=== PATIENT | male | born 1960 | race Caucasian/White ===

== ENCOUNTER 2018-11-03 07:32 | Day surgery (SDC) ==
--- NOTE | 2018-11-02 10:16 | EKG Report ---
Test Performed on : 11/02/2018 10:10:58 AM Test Reason : pat Blood Pressure : / mmHG Vent. Rate : 080 BPM Atrial Rate : 080 BPM P-R Int : 182 ms QRS Dur : 096 ms QT Int : 382 ms P-R-T Axes : 056 047 084 degrees QTc Int : 440 ms Normal sinus rhythm. Normal ECG When compared with ECG of 02-NOV-2018 10:10, (Unconfirmed) T wave inversion no longer evident in Inferior leads Unconfirmed Result
[2018-11-02 10:35] LABS: HEMATOCRIT 39.4 % (42.0-52.0); HEMOGLOBIN 13.1 g/dL (14.0-18.0); MCH 31.2 PG (27-31); MCHC 33.2 g/dL (33-37); MCV 93.8 FL (81-99); RBC 4.2 XMIL (4.7-6.1); RDW 12.8 % (11.5-14.5); WBC 3.64 X1000 (4.8-10.8)
[2018-11-02 11:07] LABS: AGAP 12; BUN 28 mg/dL (8-22); CALCIUM 9.7 mg/dL (8.8-10.2); CHLORIDE 106 mmol/L (98-107); COSMO 295; CREATININE 1.1 mg/dL (0.7-1.2); ESTIMATED GFR > 60; GLUCOSE 105 mg/dL (70-104); POTASSIUM 4.5 mmol/L (3.5-5.1); SODIUM 145 mmol/L (136-145); TCO2 27 mmol/L (25-35)
[2018-11-03] MEDS ORDERED: DIPRIVAN 1% ONE (07:33)
[2018-11-03] MEDS ORDERED: XYLOCAINE-MPF 2% ONE (07:37)
[2018-11-03] MEDS ORDERED: SUFENTA ONE (07:37)
[2018-11-03] MEDS ORDERED: QUELICIN (DOSE) ONE (07:46)
[2018-11-03] MEDS ORDERED: KEFZOL 2 GM/D5W 2 GM/50 ML IVPB ONE (07:55)
[2018-11-03] MEDS ORDERED: REGLAN ONE (07:55)
[2018-11-03] MEDS ORDERED: PEPCID ONE (07:55)
[2018-11-03] MEDS ORDERED: VALIUM ONE (07:55)
[2018-11-03] MEDS ORDERED: LR 1,000 ML ONE ×2 (07:55→12:55)
[2018-11-03] MEDS ORDERED: NORCURON ONE (09:11)
[2018-11-03] MEDS ORDERED: B & O 15A SUPP ONE (09:54)
[2018-11-03] MEDS ORDERED: DECADRON ONE (09:58)
[2018-11-03] MEDS ORDERED: ZOFRAN ONE (09:58)
[2018-11-03] MEDS ORDERED: ROBINUL ONE (10:02)
[2018-11-03] MEDS ORDERED: NEOSTIGMINE ONE (10:02)
[2018-11-03] MEDS: DILAUDID ONE ×2 (10:31→10:34)
[2018-11-03] MEDS ORDERED: NORCO-10 ONE (10:38)
--- NOTE | 2018-11-03 11:21 | Diag Imaging Result Doc PS360 ---
EXAM: RETROGRADES 2 OR 3 FILMS 11/03/2018 HISTORY: BILA RETRO,RT. STENT PLACED TECHNIQUE: 24 images, 30 seconds fluoroscopy time, 1.3 mGy. COMMENT: Ureteroscopy is performed on the right followed by a retrograde pyelogram and stent placement. There are no apparent obstructing lesions or filling defects demonstrated on the right. There is also retrograde mammography on the left with relatively poor demonstration of the calyces but no definite obstructing lesions demonstrated. IMPRESSION: Right ureteral stent placement. Electronically signed by Rudi Gillespie 11/03/2018 11:19 AM
[2018-11-03] MEDS ORDERED: LEVSIN PO ONE (12:15)
--- NOTE | 2018-11-03 13:03 | OPERATIVE NOTE ---
PROCEDURE DATE: 11/03/2018 PREOPERATIVE DIAGNOSES: 1. Bladder mass. 2. Right ureteral stone. POSTOPERATIVE DIAGNOSES: 1. Bladder mass. 2. Spontaneous passage of right ureteral stone. PROCEDURES PERFORMED: 1. Cystoscopy with bilateral retrograde pyelograms. 2. Right diagnostic ureteroscopy. 3. Right 6 x 26 cm ureteral stent. 4. Transurethral resection of bladder tumor for a tumor greater than 2 cm. SURGEON: Gustavo Vides MD. CONDUCTOR SYMPHONIC ORCHESTRA: None COMPLICATIONS: None. BLOOD LOSS: 5 mL. DRAINS: A 6 x 26 cm right double-J stent, 20-Hungarian Jhaveri catheter. SPECIMENS REMOVED: Superficial and deep bladder tumor specimens. ANESTHESIA: Endotracheal intubation. OPERATIVE FINDINGS: Patient has a normal urethra. No evidence of stricture disease or papillary lesions. On entry into the bladder, an approximately 2 cm tumor was seen on the left lateral wall superior to the left ureteral orifice. Both ureteral orifices were visualized with efflux of urine. No evidence of any stone was seen within the bladder. The right ureteral orifice previously had a stone present visualized within the ureteral orifice itself. This was not visualized today. Performed right diagnostic ureteroscopy and showed no evidence of any stones within the ureter. Bilateral retrograde pyelograms showed normal ureteral mucosa with no evidence of any filling defects or obstruction. There was a significant amount of edema around the right ureteral orifice. The decision was made to place a ureteral stent and a 6 x 26 cm stent which passed with ease. Then, transurethral resection of bladder tumor was performed with resectoscope with superficial and deep specimens sent. The patient had a 20F Jhaveri catheter placed which was draining light pink irrigant. INDICATION FOR PROCEDURE: Mr. Morris is a 58 year old, who presented to the emergency room with right abdominal and flank pain. He underwent a CT abdomen and pelvis stone search, which showed a stone measuring approximately 5 mm at the ureterovesical junction on the right, as well as a left wall bladder mass. The patient presented to Urology office and underwent cystoscopy, and was found to have a mass on the left lateral wall, as well as stone seen within the ureteral orifice itself. I recommended that we undergo TURBT and then ureteroscopy for stone extraction. Risks, benefits, alternatives of both procedures were discussed and the patient willing to proceed. DESCRIPTION OF PROCEDURE: After informed consent was obtained, the patient is brought to the operating room, and placed on the operative table in the supine position. The patient underwent endotracheal intubation and received preoperative antibiotics. His perineum was prepped and draped in usual sterile fashion. Preoperative time-out was performed with all parties in agreement, including anesthesia, surgical and nursing staff. At which time a 21-Hungarian cystourethroscope inserted to the urethra showing no normal urethra, no stricture disease. On entry into the bladder, the patient's prostate was small. No evidence of obstruction. Both ureteral orifices visualized with efflux of yellow urine. No evidence of any stones were seen in the right ureteral orifice, where a previous stone was seen. The entirety of the bladder mucosa was inspected, and the only abnormality seen was an approximately 2 cm tumor on the left lateral wall just superior to the left ureteral orifice. Tumor was papillary and had dystrophic calcifications. The decision was made to place a wire to pass through the cystourethroscope and cannulated the right ureteral orifice and this passed all the way up into the collecting system. This ureteroscope was removed and a semi-rigid ureteroscope was passed through the urethra and into the bladder. On entry into the bladder, the right ureteral orifice was able to be cannulized requiring a PTFE wire. This allowed for easy passage of the ureteroscope all the way up into the ureteropelvic junction with no evidence of any stones. Good mucosa was seen within the ureter itself. However, there was a moderate amount of edema at the ureterovesical junction. The decision was made to shoot bilateral retrogrades, which were performed which outlined normal ureters, no evidence of obstruction in ureter or collecting system bilaterally. There was slight hydronephrosis on the right side, likely related to prior obstruction. A ZIPwire was then passed through the scope into the right ureteral orifice, and a 6 x 26 cm stent was passed with ease into the collecting system, at which time the patient's bladder was drained and a 26F resectoscope was exchanged for the cystoscope. The resectoscope was inserted into the bladder with internal obturator. Then using bipolar electrocautery resection was started at the most superficial portion of the tumor and resected through the tumor and down to muscle. These were all sent as superficial specimens and then several deep bites were taken and sent as separate specimen. Good hemostasis was obtained with electrocautery. Following this, the entirety of the bladder was inspected and all chips were removed. No evidence of bleeding was seen from the prostate or any of the mucosal surfaces. Both ureteral orifices were visualized. There was a small amount of red tinge urien coming from the right ureteral orifice with no active bleeding. The left ureteral orifice had efflux of clear yellow urine. The patient's bladder was left full, and a 20-Hungarian Jhaveri catheter was inserted through the urethra and into the bladder. Balloon was inflated with 10 cc of sterile water. Good drainage of light pink irrigant was seen. The patient was awoken and was taken to recovery in stable condition. DISPOSITION: Patient will be monitored in the postop care unit. If does well, we plan to discharge home to return on Wednesday for catheter removal and stent removal. cc: Gustavo Vides MD MTDD
[2018-11-03] MEDS ORDERED: NAPROSYN PO PRN (13:19)
[2018-11-03] MEDS ORDERED: AMBIEN PO PRN (13:19)
[2018-11-03] MEDS ORDERED: TORADOL PO PRN (13:19)
[2018-11-03] MEDS ORDERED: ZOFRAN PO PRN (13:19)
[2018-11-03] MEDS ORDERED: ZOFRAN IV PRN (13:30)
[2018-11-03] MEDS ORDERED: NORCO-7.5 PO PRN (13:30)
[2018-11-03] MEDS: MORPHINE IV PRN ×2 (13:42→21:00)
[2018-11-03] MEDS: LR 1,000 ML IV SCH ×2 (13:49→22:36)
[2018-11-03] MEDS: NORCO-10 PO PRN (16:33)
[2018-11-03] MEDS: KEFZOL 1 GM/D5W 1 GM/50 ML IVPB IV SCH ×2 (16:36→17:16)
[2018-11-03] MEDS ORDERED: LEVSIN PO PRN (18:00)
[2018-11-03] MEDS: COLACE PO SCH (21:01)
[2018-11-03] MEDS: PERIDEX MT SCH (21:01)
[2018-11-04] MEDS: MORPHINE IV PRN ×2 (02:20→05:04)
[2018-11-04] MEDS: KEFZOL 1 GM/D5W 1 GM/50 ML IVPB IV SCH (02:20)
[2018-11-04 06:03] LABS: EOS# 0.03 X1000 (0.0-0.7); EOS% 0.3 % (0.0-10.0); HEMATOCRIT 37.1 % (42.0-52.0); HEMOGLOBIN 12.5 g/dL (14.0-18.0); IMM GRAN# 0.02 X1000 (0.0-0.04); IMM GRAN% 0.2 % (0.0-0.5); LYMPH# 0.95 X1000 (1.2-3.4); LYMPH% 10.8 % (20.5-51.1); MCH 31.3 PG (27-31); MCHC 33.7 g/dL (33-37); MONO# 0.62 X1000 (0.11-0.59); MONO% 7.1 % (1.7-9.3); MPV 10.3 FL (7.4-10.4); NEUT# 7.16 X1000 (1.4-6.5); NEUT% 81.6 % (42.2-75.2); PLT 126 X1000 (130-400); RBC 3.99 XMIL (4.7-6.1); RDW 12.8 % (11.5-14.5); WBC 8.78 X1000 (4.8-10.8)
[2018-11-04 06:38] LABS: AGAP 14; BUN 15 mg/dL (8-22); CALCIUM 8.6 mg/dL (8.8-10.2); CHLORIDE 103 mmol/L (98-107); COSMO 282; CREATININE 0.9 mg/dL (0.7-1.2); ESTIMATED GFR > 60; GLUCOSE 166 mg/dL (70-104); SODIUM 139 mmol/L (136-145); TCO2 22 mmol/L (25-35)
[2018-11-04 07:35] VITALS: BP 146/81
[2018-11-04] MEDS: COLACE PO SCH (07:52)
[2018-11-04] MEDS: PERIDEX MT SCH (07:52)
[2018-11-04] MEDS: NORCO-10 PO PRN (07:52)
--- NOTE | 2018-11-04 08:15 | PROGRESS NOTE ---
DATE: 11/04/2018 SUBJECTIVE: Postop day 1 from right ureteroscopy and stent placement and transurethral resection of bladder tumor. The patient had bladder spams and hematuria yesterday requiring irrigation by nursing staff on the postop area. He had several small clots in his urine. The decision was made to observe overnight. His urine has cleared significantly, draining well without obvious clots. He does say that the nurse had to flush his catheter once overnight with return of small clots. The patient currently denies any abdominal or suprapubic tenderness. Denies any penile pain. He has been tolerating a diet. Has been up to the bathroom, has not had a bowel movement at of yet. He states he is passing gas. OBJECTIVE: Vital signs: Temperature 97.6 degrees, heart rate 76, blood pressure 146/81, oxygen saturation 97% on room air. General: No acute distress. Resting comfortably in bed, alert and oriented x3. Respiratory: Good respiratory effort without audible wheezing or rales. Abdomen: Soft, nontender, nondistended. No palpable masses. : No suprapubic tenderness. Urethral catheter in place draining light pink urine. No evidence of any clots. No evidence of any blood at the urethral meatus. Musculoskeletal: Moving all extremities without issue. LABORATORY DATA: White blood cell count 8.78, hemoglobin 12.5, hematocrit 37.1, platelets 126,000. Sodium 139, potassium 4, chloride 103, bicarb 22, BUN 15, creatinine 0.9, glucose 166. ASSESSMENT AND PLAN: Mr. Morris is a 58-year-old who is postoperative day 1 from transurethral resection of bladder tumor and right ureteroscopy and right ureteral stent placement. The patient was admitted overnight for observation due to hematuria. His hematuria seems to have improved significantly. His catheter is draining clear pink urine. No evidence of any clots this morning. His pain has been well controlled. He is tolerating a diet. The patient is alert and oriented this morning and all his labs are within normal limits. The patient complains he has not been able to have a bowel movement but feels like he might have to. I told him that the urethral catheter can sometimes cause irritation as well as when he undergoes a transurethral resection of the tumor. The patient is passing flatus. The patient has been on Colace. I encouraged him to continue on Colace at home, and the patient will try laxative as well. Encouraged him to get up, walk around today and as long as urine remains clear, the patient can likely go home. Would get him education on irrigation of the catheter in case he has clots forming. The patient has seen multiple episodes of irrigation and states he is comfortable if necessary. The patient will present to clinic on Wednesday for catheter removal and removal of his right ureteral stent. The patient will then follow up for pathology discussion. cc: Gustavo Vides MD MTDD
[2018-11-04] MEDS ORDERED: FLOMAX PO SCH (09:00)
[2018-11-04] MEDS ORDERED: WELLBUTRIN XL PO SCH (09:00)
[2018-11-04] MEDS ORDERED: ZYLOPRIM PO SCH (09:00)
== END 2018-11-04 08:59 | disposition home or self-care (01) ==
LOC: 4N 07:32 → OPS 07:32
PROVIDERS: ATTEND Urology
CPT/HCPCS: 74420; 80048; 85025; 85027; 88305; 88313; 93005; 93010; 94761; 94799; A9270; J0330; J0690; J1100; J1170; J2270; J2405; J7120; Q9966; Q9967